=== PATIENT | female | born 1990 ===

== ENCOUNTER 2018-10-07 15:32 | Outpatient (CLI) | payer BC | END 2018-10-07 15:34 | disposition home or self-care (01) | LOC: MAMO-SONO 15:32 | DX: Z12.31 Encounter for screening mammogram for malignant neoplasm of breast (principal); N64.4 Mastodynia; N60.11 Diffuse cystic mastopathy of right breast; N63.10 Unspecified lump in the right breast, unspecified quadrant; N63.20 Unspecified lump in the left breast, unspecified quadrant ==